=== PATIENT | male | born 1970 | race Caucasian/White ===

== ENCOUNTER → 2022-03-27 14:56 | Outpatient (BNVA) | payer MEDICAID, SELFPAY | PROVIDERS: Visit Provider Physician Assistant | DX: M16.12 Unilateral primary osteoarthritis, left hip (principal); M87.052 Idiopathic aseptic necrosis of left femur; F17.200 Nicotine dependence, unspecified, uncomplicated | CPT/HCPCS: 73502; 99203 ==

== ENCOUNTER → 2022-04-30 11:31 | Outpatient (BNVA) | payer MEDICAID, SELFPAY | PROVIDERS: Visit Provider Family Medicine | DX: I10 Essential (primary) hypertension (principal); J44.9 Chronic obstructive pulmonary disease, unspecified; M87.052 Idiopathic aseptic necrosis of left femur; F10.21 Alcohol dependence, in remission; F15.21 Other stimulant dependence, in remission; F41.9 Anxiety disorder, unspecified; F32.1 Major depressive disorder, single episode, moderate; F17.200 Nicotine dependence, unspecified, uncomplicated; Z71.6 Tobacco abuse counseling | CPT/HCPCS: 80053; 80061; 83036; 85025 ==

== ENCOUNTER → 2022-05-07 14:43 | Outpatient (BNVA) | payer MEDICAID, SELFPAY | PROVIDERS: PCP Family Medicine; Visit Provider Specialist | DX: M87.052 Idiopathic aseptic necrosis of left femur (principal); M16.7 Other unilateral secondary osteoarthritis of hip; E66.01 Morbid (severe) obesity due to excess calories; Z68.41 Body mass index [BMI] 40.0-44.9, adult | CPT/HCPCS: 99205 ==

== ENCOUNTER → 2022-06-06 12:17 | Outpatient (BNVA) | payer MEDICAID, SELFPAY | PROVIDERS: PCP Family Medicine; Visit Provider Family Medicine | DX: R60.0 Localized edema (principal); F32.1 Major depressive disorder, single episode, moderate; Z11.1 Encounter for screening for respiratory tuberculosis; F15.21 Other stimulant dependence, in remission; M87.052 Idiopathic aseptic necrosis of left femur; F10.21 Alcohol dependence, in remission; F41.9 Anxiety disorder, unspecified; I10 Essential (primary) hypertension; F17.200 Nicotine dependence, unspecified, uncomplicated | CPT/HCPCS: 86480 ==

== ENCOUNTER → 2022-06-20 11:27 | Outpatient (BNVA) | payer MEDICAID, SELFPAY | PROVIDERS: PCP Family Medicine; Visit Provider Family Medicine | DX: R60.0 Localized edema (principal); F32.1 Major depressive disorder, single episode, moderate; Z11.1 Encounter for screening for respiratory tuberculosis; F15.21 Other stimulant dependence, in remission; M87.052 Idiopathic aseptic necrosis of left femur; F10.21 Alcohol dependence, in remission; F41.9 Anxiety disorder, unspecified; I10 Essential (primary) hypertension | CPT/HCPCS: 80053 ==

== ENCOUNTER → 2022-08-07 10:59 | Outpatient (BNVA) | payer MEDICAID, SELFPAY | PROVIDERS: PCP Family Medicine; Visit Provider Family Medicine | DX: R79.89 Other specified abnormal findings of blood chemistry (principal); R60.0 Localized edema; M16.7 Other unilateral secondary osteoarthritis of hip; F15.21 Other stimulant dependence, in remission; I10 Essential (primary) hypertension | CPT/HCPCS: 80053; 80074; 81000; 86705; 86706; 87340; 87522 ==

== ENCOUNTER 2022-09-01 13:42 | Outpatient (CLI) | payer MEDICAID, SELFPAY ==
--- NOTE | 2022-09-01 13:45 | USCV_ITS ---
Edison Franz Age: 52 Gender: M : 1970 Exam Date: 09/01/2022 14:16 Ordering Phys: Juan M Calloway MD Technologist: Exam Location: [facility] [place] Indication: chf BP: 125 / 75 HR: 64 Rhythm: Sinus Technical Quality: Adequate MEASUREMENTS (Male / Female) Normal Values 2D ECHO LV Diastolic Diameter PLAX 4.6 cm 4.2 - 5.9 / 3.9 - 5.3 cm LV Systolic Diameter PLAX 2.6 cm IVS Diastolic Thickness 1.6 cm 0.6 - 1.0 / 0.6 - 0.9 cm IVS Systolic Thickness 1.7 cm LVPW Diastolic Thickness 1.2 cm 0.6 - 1.0 / 0.6 - 0.9 cm LVPW Systolic Thickness 1.5 cm LVOT Diameter 2.0 cm LV Ejection Fraction 2D Teich 73.9 % LV Ejection Fraction MOD 2C 69.0 % LV Ejection Fraction 2C AL 69.1 % LA Diameter 3.9 cm IVC Diameter 1.4 cm M-MODE Aortic Annulus Diameter 3.6 cm LA Ao Ratio MM 1.1 MV E Point Septal Separation 0.5 cm DOPPLER AV Peak Velocity 169.0 cm/s LVOT Peak Velocity 115.0 cm/s AV Area Cont Eq vti 2.5 cm squared AV Area Cont Eq pk 2.2 cm squared MV Area PHT 5.0 cm squared Mitral E to A Ratio 1.3 MV E' Velocity 51.5 cm/s Mitral E to MV E' Ratio 7.7 Mitral E to LV E' Lateral Ratio 8.8 Mitral E to LV E' Septal Ratio 6.9 TR Peak Velocity 141.3 cm/s TR Peak Gradient 8.0 mmHg TV Peak E Velocity 120.0 cm/s Right Atrial Pressure 3.0 mmHg Pulmonary Artery Systolic Pressu 11.0 mmHg RV Acceleration Time 0.2 s FINDINGS Left Ventricle Left ventricle normal size. LV systolic function is normal with EF 60-65%. No regional wall motion abnormalities are seen. Diastolic function is normal Right Ventricle Normal in size and function Right Atrium Normal in size Left Atrium Normal in size Mitral Valve Structurally normal mitral valve. Trace mitral regurgitation. Aortic Valve Structurally normal aortic valve.No significant stenosis or regurgitation. Tricuspid Valve Trace tricuspid regurgitation. Insufficient TR jet to calculate RVSP Pulmonic Valve Not well-visualized Pericardium Normal Aorta Normal in size IVC Appears to be normal CONCLUSIONS LV systolic function is normal with EF 55 to 60%. Trace mitral regurgitation Trace tricuspid regurgitation No comparison studies are available Rambo Vieira MD (Electronically Signed) Final Date: 12 Sep 2022 14:11 S
== END 2022-09-01 13:43 | disposition home or self-care (01) ==
LOC: RAD 13:45
PROVIDERS: PCP Family Medicine; Visit Provider Family Medicine
DX: R60.0 Localized edema (principal); I34.0 Nonrheumatic mitral (valve) insufficiency; I07.1 Rheumatic tricuspid insufficiency
CPT/HCPCS: 93306

== ENCOUNTER → 2022-09-30 09:25 | Outpatient (BNVA) | payer MEDICAID, SELFPAY | PROVIDERS: PCP Family Medicine; Referring Provider Family Medicine; Visit Provider Anesthesiology Pain Medicine | DX: M16.12 Unilateral primary osteoarthritis, left hip (principal); M87.052 Idiopathic aseptic necrosis of left femur | CPT/HCPCS: 99204 ==

== ENCOUNTER → 2022-10-15 13:18 | Outpatient (BNVA) | payer MEDICAID, SELFPAY | PROVIDERS: PCP Family Medicine; Visit Provider Anesthesiology Pain Medicine | DX: M16.12 Unilateral primary osteoarthritis, left hip (principal) | CPT/HCPCS: 20610; 77002; G0463; J1030; J3490 ==

== ENCOUNTER → 2022-11-05 09:55 | Outpatient (BNVA) | payer MEDICAID, SELFPAY | PROVIDERS: PCP Family Medicine; Visit Provider Anesthesiology Pain Medicine | DX: Z09 Encounter for follow-up examination after completed treatment for conditions other than malignant neoplasm (principal); M25.552 Pain in left hip; Z68.39 Body mass index [BMI] 39.0-39.9, adult; M87.052 Idiopathic aseptic necrosis of left femur | CPT/HCPCS: 99214 ==

== ENCOUNTER → 2022-12-01 10:25 | Outpatient (BNVA) | payer MEDICAID, SELFPAY | PROVIDERS: PCP Family Medicine; Visit Provider Specialist | DX: M16.7 Other unilateral secondary osteoarthritis of hip (principal); M70.62 Trochanteric bursitis, left hip; M87.052 Idiopathic aseptic necrosis of left femur | CPT/HCPCS: 20610; 73502; 99213; J1100; J2795; J3301 ==

== ENCOUNTER → 2023-02-27 14:00 | Outpatient (BNVA) | payer MEDICAID, SELFPAY | PROVIDERS: PCP Family Medicine; Visit Provider Family Medicine | DX: R79.89 Other specified abnormal findings of blood chemistry (principal); Z23 Encounter for immunization; Z79.899 Other long term (current) drug therapy | CPT/HCPCS: 80053; 86705; 86706; 86709; 86803; 87340; 87522 ==

== ENCOUNTER → 2023-06-23 11:00 | Outpatient (BNVA) | payer MEDICAID, SELFPAY | PROVIDERS: PCP Family Medicine; Visit Provider Family Medicine | DX: Z11.1 Encounter for screening for respiratory tuberculosis (principal); B19.20 Unspecified viral hepatitis C without hepatic coma; Z12.5 Encounter for screening for malignant neoplasm of prostate; N40.0 Benign prostatic hyperplasia without lower urinary tract symptoms; M16.7 Other unilateral secondary osteoarthritis of hip; R60.0 Localized edema; I10 Essential (primary) hypertension; Z71.6 Tobacco abuse counseling; F17.200 Nicotine dependence, unspecified, uncomplicated | CPT/HCPCS: 80053; 84153; 85025; 86480 ==

== ENCOUNTER → 2023-06-26 08:22 | Outpatient (BNVA) | payer MEDICAID, SELFPAY | PROVIDERS: PCP Family Medicine; Visit Provider Specialist | DX: M70.62 Trochanteric bursitis, left hip (principal) | CPT/HCPCS: 20610; J1100; J2795; J3301 ==

== ENCOUNTER → 2023-07-02 15:28 | Outpatient (BNVA) | payer MEDICAID, SELFPAY | PROVIDERS: PCP Family Medicine; Visit Provider Family Medicine | DX: B19.20 Unspecified viral hepatitis C without hepatic coma (principal) | CPT/HCPCS: 85610; 87522; 87806; 87902 ==

== ENCOUNTER 2023-07-14 08:28 | Outpatient (CLI) | payer MEDICAID, SELFPAY ==
--- NOTE | 2023-07-14 09:00 | US_ITS ---
WS: [id number] ULTRASOUND ABDOMEN LIMITED CLINICAL INFORMATION: liver us for hep c COMPARISON: None. FINDINGS: Technically difficult study due to body habitus. Liver Size: Normal. Craniocaudal length: 14.5 cm. Echogenicity: Coarse and heterogeneous Surface nodularity: None. Mass (size and location): None. Bile ducts Intrahepatic ducts: Normal. Common bile duct diameter: 0.4 cm. Gallbladder Mobile cholelithiasis Gallstones: Present Gallbladder sludge: None. Gallbladder wall thickening: None. Pericholecystic fluid: None. Sonographic Saldivar sign: Absent. Pancreas Normal as visualized. Right kidney: Normal. Hydronephrosis: None. Size: 10.0 cm x 4.3 cm x 3.6 cm. Abdominal aorta and IVC Visualized portions are normal. Ascites: None. IMPRESSION: Technically difficult study. 1. Coarse heterogeneous liver echotexture. Normal liver size. 2. Normal flow in the main portal vein. 3. Mobile cholelithiasis. No gallbladder wall thickening or pericholecystic fluid. 4. No hydronephrosis in the RIGHT kidney. 5. Normal common bile duct.
== END 2023-07-14 08:29 | disposition home or self-care (01) ==
LOC: RAD 08:29
PROVIDERS: PCP Family Medicine; Visit Provider Family Medicine
DX: B19.20 Unspecified viral hepatitis C without hepatic coma (principal); K80.80 Other cholelithiasis without obstruction
CPT/HCPCS: 76705

== ENCOUNTER → 2023-09-25 09:22 | Outpatient (BNVA) | payer MEDICAID, SELFPAY | PROVIDERS: PCP Family Medicine; Visit Provider Specialist | DX: M70.62 Trochanteric bursitis, left hip (principal); Z71.89 Other specified counseling | CPT/HCPCS: 20610 ==

== ENCOUNTER → 2023-10-06 09:01 | Outpatient (BNVA) | payer MEDICAID, SELFPAY | PROVIDERS: PCP Family Medicine; Visit Provider Family Medicine | DX: B19.20 Unspecified viral hepatitis C without hepatic coma (principal) | CPT/HCPCS: 87522 ==

== ENCOUNTER → 2023-12-02 14:36 | Outpatient (BNVA) | payer MEDICAID, SELFPAY | PROVIDERS: PCP Family Medicine; Referring Provider Student in an Organized Health Care Education/Training Program; Visit Provider Internal Medicine Cardiovascular Disease | DX: I21.29 ST elevation (STEMI) myocardial infarction involving other sites (principal); R07.9 Chest pain, unspecified | CPT/HCPCS: 93005; 99204 ==

== ENCOUNTER 2023-12-03 13:43 | Emergency (ER) | payer MEDICAID, SELFPAY ==
[2023-12-03 13:54] VITALS: BP 124/73; PULSE 80; RESP 18; TEMP 36.4; O2SAT 97
--- NOTE | 2023-12-03 13:59 | ED_ITS ---
HPI - Extremity Problem 2 General: Chief complaint: Extremity Injury, Lower Stated complaint: leg pain Time Seen by Provider: 12/03/23 13:58 History of Present Illness: 53-year-old male patient comes in today with swelling and redness to the right lower extremity. Patient has a notable hematoma there. Patient reports falling about 2 weeks ago but has not had any significant improvement since then. Patient was referred to the ER for concerns of possible DVT. 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 Broken tibia Broken ankle Hypertension COPD (chronic obstructive pulmonary disease) Family History Other Hyperlipidemia Hypertension Stroke Denies family history of Diabetes CAD (coronary artery disease) Clotting disorder Dementia Psychiatric illness Chronic kidney disease (CKD) Anesthesia complication Bleeding disorder Lung disease Cancer Social History Smoking and tobacco/nicotine status: current every day tobacco/nicotine user Second hand smoke exposure: Yes Alcohol intake: former Former alcohol use details: 15 beer/day + bottle of whisky x 30yrs Substance/Drug Use: former Date of last use: meth x 7 years, quit 04/01 Adopted: Yes Caregiver/support person: Yes Lives independently: Yes Household members: none Housing: Homeless Marital status: Legally Number of children: 0 Highest education level completed: 9th Grade service: No Current occupational status: unemployed and disabled Current occupational exposures/hazards: No Pets and animals: No Sexually active: No Do you think of yourself as: Decline to Answer Current gender identity: Male Liliana/Mormonism: Orthodox Special liliana needs: No Agree to transfusion: Yes Physical Exam 2 Const: COMMON NORMALS: alert HENMT: COMMON NORMALS: normocephalic HEAD & SCALP: normocephalic Neck/C-Spine: COMMON NORMALS: full ROM Chest: COMMONS NORMALS: normal inspection of the chest Resp: COMMON NORMALS: normal respiratory effort and clear to auscultation bilaterally AUSCULTATION: clear to auscultation bilaterally Cardio: COMMON NORMALS: regular rate RATE: regular rate GI: COMMON NORMALS: Soft to palpation and non-tender PALPATION: Yes Soft to palpation Back/Pelvis: COMMON NORMALS: thoracic and lumbar spine normal to inspection Extremity: COMMON NORMALS: full ROM RIGHT LOWER EXTREMITY: Yes lower leg (Hematoma noted lateral, +2 edema, redness) Right lower leg: Yes inspection, Yes palpation and Yes neurovascular exam Neuro: SENSORIUM/ORIENTATION: Yes alert Skin: COMMON NORMALS: turgor normal GENERAL SKIN EXAM: turgor normal Course 2 Vital Signs: Vital signs: Vital Signs Temperature 97.6 F 12/03/23 13:54 Pulse Rate 80 12/03/23 13:54 Respiratory Rate 18 12/03/23 13:54 Blood Pressure 124/73 12/03/23 13:54 Pulse Oximetry 97 12/03/23 13:54 Oxygen Delivery Me thod Room Air 12/03/23 13:54 MDM - Extremity (Nontraumatic) Medical Decision Making 53-year-old male patient comes in with redness and swelling to the right lower extremity. There is a notable hematoma noted to the lateral aspect of the right lower leg. Distal pulses are intact. +2 pitting edema. Differential diagnosis cellulitis, hematoma, DVT, fracture. Wet read of x-ray noted no acute bony abnormalities. Ultrasound of the lower extremity for DVT noted no DVT. CBC CMP was unremarkable. Due to patient's redness and erythema of the skin we will go ahead and treat for a cellulitis. For the hematoma we recommended elevation as much as possible. Recommend follow-up with primary care in 1 week for recheck. Recommend return to ER for worsening symptoms. Lab Data 12/03/23 14:24 12/03/23 14:24 Laboratory Results WBC 7.04 10^3/uL (3.29-11.43) 12/03/23 14:24 RBC 4.38 10^6/uL (3.85-5.65) 12/03/23 14:24 Hgb 12.80 g/dL (11.27-16.99) 12/03/23 14:24 Hct 39.4 % (37-53) 12/03/23 14:24 MCV 90.0 fl (82-101) 12/03/23 14: MCH 29.2 pg (27-33) 12/03/23 14:24 MCHC 32.5 g/dL (30-55) 12/03/23 14:24 RDW 13.9 % (12.1-15.1) 12/03/23 14:24 Plt Count 164 10^3/cmm (157-399) 12/03/23 14:24 MPV 11.5 fL (7.4-10.4) H 12/03/23 14:24 Neut % (Auto) 52.3 % 12/03/23 14:24 Lymph % (Auto) 31.0 % 12/03/23 14:24 [place] % (Auto) 10.1 % 12/03/23 14:24 Eos % (Auto) 4.5 % 12/03/23 14:24 Baso % (Auto) 1.1 % 12/03/23 14:24 Neut # (Auto) 3.68 10^3/uL (1.8-7.7) 12/03/23 14:24 Lymph # (Auto) 2.2 10^3/uL (0.8-4.8) 12/03/23 14:24 [place] # (Auto) 0.7 10^3/uL (0.2-0.9) 12/03/23 14:24 Eos # (Auto) 0.3 10^3/uL (0.0-0.8) 12/03/23 14:24 Baso # (Auto) 0.1 10^3/uL (0.0-0.1) 12/03/23 14:24 Nucleated RBC % (auto) 0 % 12/03/23 14:24 Nucleated RBCs # 0.0 /100WBC 12/03/23 14:24 Sodium 141 mmol/L (136-145) 12/03/23 14:24 Potassium 4.4 mmol/L (3.5-5.1) 12/03/23 14:24 Chloride 106 mmol/L (98-107) 12/03/23 14:24 Carbon Dioxide 24 mmol/L (22-29) 12/03/23 14:24 Anion Gap 15.4 (5-19) 12/03/23 14:24 BUN 18 mg/dL (6-20) 12/03/23 14:24 Creatinine 1.3 mg/dL (0.7-1.2) H 12/03/23 14:24 GFR Calculation 57.7 mL/min (90-130) L 12/03/23 14:24 Glucose 107 mg/dL (65-115) 12/03/23 14:24 Calculated Osmolality 294 mOsm/kg (285-295) 12/03/23 14:24 Calcium 8.4 mg/dL (8.5-10.5) L 12/03/23 14:24 C-Reactive Protein 12.4 mg/L (0.0-4.9) H 12/03/23 14:24 XR interpretation done by ED provider, pending radiology final review Discharge Plan Discharge Patient Disposition: Home Clinical Impression: Cellulitis of leg, right Condition: Stable Prescriptions: New amoxicillin-pot clavulanate 875-125 mg tablet 1 tab PO BID Qty: 20 0RF No Action (DME) Rollaid 4 point walker See Rx Instructions .Route .MEDSUPPLY Qty: 1 0RF Rx Instructions: As directed Mavyret 100-40 mg tablet 3 tab PO DAILY 84 Days Qty: 252 0RF Rx Instructions: must administer with a meal/food albuterol sulfate [Ventolin HFA] 90 mcg/actuation HFA aerosol inhaler 1 inh inhalation QID PRN (Reason: shortness of breath or wheezing) Qty: 8.5 2RF nicotine 14 mg/24 hr patch 24 hour 1 patch transdermal DAILY Qty: 28 4RF nicotine (polacrilex) 4 mg gum 4 mg buccal Q2H Qty: 110 7RF nicotine (polacrilex) 4 mg lozenge 4 mg buccal .q2-4hrs PRN (Reason: nicotine cravings) Qty: 108 8RF olanzapine 15 mg tablet 15 mg PO .HS Qty: 30 11RF mirtazapine 30 mg tablet 30 mg PO .HS Qty: 30 11RF hydroxyzine HCl 50 mg tablet 50 mg PO QID PRN (Reason: anxiety/sleep) Qty: 120 2RF fluoxetine [Prozac] 40 mg capsule 40 mg PO DAILY Qty: 30 11RF acetaminophen 500 mg capsule 500 mg PO Q6H PRN (Reason: fever or pain) Qty: 100 0RF naproxen 500 mg tablet,delayed release (DR/EC) 500 mg PO BID PRN (Reason: pain) Qty: 180 1RF aspirin 81 mg tablet,delayed release (DR/EC) 81 mg PO DAILY Qty: 90 1RF Spiriva with HandiHaler 18 mcg capsule, w/inhalation device 1 cap inhalation DAILY Qty: 60 3RF Rx Instructions: puncture 1 cap using device; one dose = 2 inhalations diltiazem HCl 300 mg capsule,extended release 24hr 300 mg PO DAILY Qty: 90 1RF torsemide 20 mg tablet See Rx Instructions .ROUTE .COMPLEX Qty: 180 0RF Dose Instruction: TAKE TWO TABLETS (40mg) BY MOUTH EVERY DAY Rx Instructions: TAKE TWO TABLETS (40mg) BY MOUTH EVERY DAY budesonide-formoterol [Symbicort] 80-4.5 mcg/actuation HFA aerosol inhaler 2 puff inhalation BID Qty: 10.2 2RF potassium chloride 20 mEq tablet extended release See Rx Instructions .ROUTE .COMPLEX Qty: 120 0RF Dose Instruction: TAKE TWO TABLETS BY MOUTH EVERY DAY FOR supplement Rx Instructions: TAKE TWO TABLETS BY MOUTH EVERY DAY FOR supplement atorvastatin 40 mg tablet See Rx Instructions .ROUTE .COMPLEX Qty: 90 1RF Dose Instruction: TAKE ONE TABLET BY MOUTH EVERY DAY Rx Instructions: TAKE ONE TABLET BY MOUTH EVERY DAY clonidine HCl 0.1 mg tablet See Rx Instructions .ROUTE .COMPLEX Qty: 180 0RF Dose Instruction: TAKE ONE TABLET BY MOUTH TWICE DAILY Rx Instructions: TAKE ONE TABLET BY MOUTH TWICE DAILY irbesartan 150 mg tablet See Rx Instructions .ROUTE .COMPLEX Qty: 90 0RF Dose Instruction: TAKE 1 TABLET BY MOUTH EVERY DAY FOR hypertension Rx Instructions: TAKE 1 TABLET BY MOUTH EVERY DAY FOR hypertension amlodipine 5 mg tablet See Rx Instructions .ROUTE .COMPLEX Qty: 90 0RF Dose Instruction: TAKE ONE TABLET BY MOUTH EVERY DAY FOR hypertension Rx Instructions: TAKE ONE TABLET BY MOUTH EVERY DAY FOR hypertension Discharge Orders: Discharge ED (Routine); Ordered 12/03/23 Ordered By: Michel Ashton Referrals: Juan M Calloway MD [Primary Care Provider] - Discharge Diet: Usual diet Discharge Activity: Increase activity as tolerated Patient Instructions: Hematoma (ED) Activity Restrictions/Additional Instructions: Take antibiotic as directed. Follow-up with primary care in 1 week for recheck. Elevate leg is much as possible. Return to ER for chest pain, shortness of breath, or fever greater than 100.4. Coding Level of Care Code ED Community Service Specialist for Marco A Little
--- NOTE | 2023-12-03 14:14 | USCV_ITS ---
Edison Franz Age: 53 Gender: M : 1970 Exam Date: 12/03/2023 15:26 Ordering Phys: Michel Ashton Technologist: LACY Exam Location: [facility] – [place] Indication: LE RT SWELLING HISTORY: . Lower extremity swelling PROCEDURES: Venous duplex imaging was performed in only the right lower extremity. The following venous structures were evaluated: common femoral vein, profunda vein, proximal portion of the greater saphenous vein, superficial femoral vein, and the popliteal vein. In addition, the posterior tibial and peroneal trunk were evaluated. Serial compression, augmentation maneuvers, and spectral Doppler flow evaluation were performed. FINDINGS: Normal 2-D Doppler and augmentation and compressibility throughout the lower extremity venous structures. Additional imaging through the proximal calf veins also reveals no thrombus. Limited evaluation of the greater saphenous vein is patent with no thrombus. CONCLUSIONS No DVT right lower extremity. Dr. Jaci Diaz DO (Electronically Signed) Final Date: 03 December 2023 15:48 S
--- NOTE | 2023-12-03 14:17 | XR_ITS ---
WS: [id number] RIGHT TIBIA-FIBULA 2 VIEWS HISTORY: injury, no prior imaging COMPARISON: None available. Lung intramedullary timmy throughout the tibia. Screws are intact. Healed fracture in the proximal to m id tibia. There is an additional healed fracture in the proximal third of the fibula. No acute fractu re or refracture. There is soft tissue edema along the lateral mid lower extremity. XR/XR tibia fibula RT 2V [id number] IMPRESSION: Status post ORIF prior tibial fracture which has healed. Remote fracture of the proximal third of the fibula which has healed. Soft tissue edema over the lateral mid tibia.
[2023-12-03 14:30] LABS: Basophils # 0.1 10^3/uL (0.0-0.1); Basophils % 1.1 %; Eosinophils # 0.3 10^3/uL (0.0-0.8); Eosinophils % 4.5 %; Hematocrit 39.4 % (37-53); Lymphocytes # 2.2 10^3/uL (0.8-4.8); Mean Corpuscular HGB Conc 32.5 g/dL (30-55); Mean Corpuscular Hemoglobin 29.2 pg (27-33); Mean Platelet Volume 11.5 fL (7.4-10.4); Monocytes # 0.7 10^3/uL (0.2-0.9); Monocytes % 10.1 %; Neutrophils # 3.68 10^3/uL (1.8-7.7); Neutrophils % 52.3 %; Nucleated Red Blood Cells % 0 %; Platelet Count 164 10^3/cmm (157-399); Red Blood Count 4.38 10^6/uL (3.85-5.65); Red Cell Distribution Width 13.9 % (12.1-15.1); White Blood Count 7.04 10^3/uL (3.29-11.43)
[2023-12-03] MEDS: acetaminophen 500 mg Tablet 1000 MG PO (14:33)
[2023-12-03 14:50] LABS: Anion Gap 15.4 (5-19); Blood Urea Nitrogen 18 mg/dL (6-20); C Reactive Protein 12.4 mg/L (0.0-4.9); Calcium 8.4 mg/dL (8.5-10.5); Carbon Dioxide 24 mmol/L (22-29); Chloride 106 mmol/L (98-107); Creatinine Clr Calc Pharmacy 87.9317; Glomerular Filtration Rate 57.7 mL/min (90-130); Glucose 107 mg/dL (65-115); Osmolality Calculated 294 mOsm/kg (285-295); Potassium 4.4 mmol/L (3.5-5.1); Sodium 141 mmol/L (136-145)
[2023-12-03 16:04] VITALS: BP 122/80; PULSE 67; O2SAT 94
[2023-12-03 16:05] VITALS: BP 122/80; PULSE 67; O2SAT 94
== END 2023-12-03 16:05 | disposition home or self-care (01) ==
PROVIDERS: Emergency Provider Nurse Practitioner Family; PCP Family Medicine
DX: L03.115 Cellulitis of right lower limb (principal); Z79.82 Long term (current) use of aspirin; Z72.0 Tobacco use; Z86.19 Personal history of other infectious and parasitic diseases; J44.9 Chronic obstructive pulmonary disease, unspecified; I10 Essential (primary) hypertension
CPT/HCPCS: 36415; 73590; 80048; 85025; 86140; 93971; 99284

== ENCOUNTER → 2023-12-14 15:40 | Outpatient (BNVA) | payer MEDICAID, SELFPAY | PROVIDERS: PCP Family Medicine; Visit Provider Family Medicine | DX: B19.20 Unspecified viral hepatitis C without hepatic coma (principal) | CPT/HCPCS: 87522 ==

== ENCOUNTER → 2024-01-01 09:19 | Outpatient (BNVA) | payer MEDICAID, SELFPAY | PROVIDERS: PCP Family Medicine; Visit Provider Specialist | DX: M70.62 Trochanteric bursitis, left hip (principal); Z71.89 Other specified counseling | CPT/HCPCS: 20610; J1100; J2795; J3301 ==

== ENCOUNTER → 2024-01-13 10:43 | Outpatient (BNVA) | payer MEDICAID, SELFPAY | PROVIDERS: PCP Family Medicine; Visit Provider Internal Medicine Cardiovascular Disease | DX: I48.20 Chronic atrial fibrillation, unspecified (principal); I10 Essential (primary) hypertension; F17.200 Nicotine dependence, unspecified, uncomplicated; F32.1 Major depressive disorder, single episode, moderate; J43.1 Panlobular emphysema | CPT/HCPCS: 99214 ==

== ENCOUNTER → 2024-02-23 13:23 | Outpatient (BNVA) | payer MEDICAID, SELFPAY | PROVIDERS: PCP Family Medicine; Visit Provider Family Medicine | DX: B19.20 Unspecified viral hepatitis C without hepatic coma (principal) | CPT/HCPCS: 87522 ==

== ENCOUNTER → 2024-03-30 11:11 | Outpatient (BNVA) | payer MEDICAID, SELFPAY | PROVIDERS: PCP Family Medicine; Visit Provider Family Medicine | DX: B19.20 Unspecified viral hepatitis C without hepatic coma (principal) | CPT/HCPCS: 87522 ==

== ENCOUNTER → 2024-04-12 09:03 | Outpatient (BNVA) | payer MEDICAID, SELFPAY | PROVIDERS: PCP Family Medicine; Visit Provider Nurse Practitioner Family | DX: I10 Essential (primary) hypertension (principal); F17.200 Nicotine dependence, unspecified, uncomplicated | CPT/HCPCS: 99213 ==

== ENCOUNTER → 2024-04-15 10:00 | Outpatient (BNVA) | payer MEDICAID, SELFPAY | PROVIDERS: PCP Family Medicine; Visit Provider Specialist | DX: M70.62 Trochanteric bursitis, left hip (principal); Z71.89 Other specified counseling | CPT/HCPCS: 20610; J1100; J2795; J3301 ==